=== PATIENT | female | born 1990 | race Caucasian/White ===

== ENCOUNTER 2016-11-04 15:30 | Emergency (ER) | payer OTHER ==
[2015-10-10 17:59] VITALS: BMI 34.2
--- NOTE | 2016-11-13 12:09 | OBHP ---
Datetime: 11/04/2016 18:31 IP Adm Impression: , intrauterine ; No Active Labor IP Chief Complaint Other: back pain IP Admit Plan: Discharge home Admit Comment, IP Provider: chief complaint- low back pain HPI 26 y/o at 27 wga by stated CLARIBEL, with c/o feeling lower abdominal back pain since yesterda y.pain is more when she walks but improves with rest.patient wears flip flopd mainly.patient denies a ny abdominal pain, vaginal bleeding or loss of fluid.Patient denies nausea, vomiting, headache, chest pain, shortness of breath course uncomplicated PMH denies PSH csectionx2 Social hx denies tobacco,alcohol or illcit drug use Exam see exam section cervic closed no cva tenderness A/P 26 y/o at 27 wga with c/o lower back discomfort. -patient not in kabor -suspect musculoksletal pain .advised to use tylenol.Wear supportive shoes -follow up in [facility] tomorrow Pelvic Type - PN: Adequate Extremities - PN: Normal Abdomen - PN: Normal Back - PN: Normal Lungs - PN: Normal Heart - PN: Normal Neurologic - PN: Normal General - PN: Normal FHR - Baseline A Provider: 150 Contraction Comments Provider: none Gestation - Est Wks by US: 27.0 IP Hx Assessment: The History has been Reviewed and is Current EGA AdmitDate IP: 27.0 Vital Signs Provider: Reviewed; Within Normal Limits IP Chief Complaint: Other NICHD Variability Prov Fetus A: Moderate 6-25bpm NICHD Accel Fetus A IP Provider: 10X10 NICHD Decel Fetus A IP Provider: None Dilatation, Provider: 0 Genitourinary Exam: Normal DTRs - PN: Normal
== END 2016-11-04 18:05 | disposition home or self-care (01) ==
LOC: C.EROB 15:30
DX: O26.892 Other specified pregnancy related conditions, second trimester (principal); M54.5 Low back pain; Z3A.27 27 weeks gestation of pregnancy

== ENCOUNTER 2017-01-08 16:48 | Observation (INO) | payer OTHER ==
[2015-10-10 17:59] VITALS: BMI 34.2
[2017-01-08] MEDS ORDERED: Lactated Ringer's 1,000 ML IV ONE (17:59)
[2017-01-08 18:46] LABS: RBC URINE 6 /hpf (0-3); URINE BACTERIA FEW (<OCC); URINE BILIRUBIN NEGATIVE (NEGATIVE); URINE BLOOD 1+ (NEGATIVE); URINE COLOR Yellow (YELLOW); URINE GLUCOSE (UA) NORMAL (Normal); URINE KETONE NEGATIVE (NEGATIVE); URINE LEUKOCYTE ESTERASE 3+ Leu/uL (Negative); URINE PROTEIN NEGATIVE (NEGATIVE); URINE UROBILINOGEN NORMAL mg/dL (0.2-1.0); WBC URINE 19 /hpf (0-5)
[2017-01-08 19:11] LABS: BASO % 0.3 % (0.0-2.0); EOS % 0.4 % (0.0-4.0); HEMATOCRIT 30.9 % (34.0-47.0); LYMPH # 2.1 K/uL (1.0-4.3); LYMPH % 22.4 % (20.0-40.0); MEAN CELL VOLUME 90.4 fL (81.0-99.0); MEAN CORPUSCULAR HEMOGLOBIN 31.4 pg (27.0-31.0); MEAN CORPUSCULAR HGB CONC 34.7 g/dL (33.0-37.0); MEAN PLATELET VOLUME 8.6 fL (7.2-11.7); MONO # 0.7 K/uL (0.0-0.8); RED CELL DISTRIBUTION WIDTH 12.8 % (11.5-14.5); WHITE BLOOD COUNT 9.3 K/uL (4.8-10.8)
[2017-01-08 19:23] LABS: CHLORIDE 106 mmol/L (98-107); POTASSIUM 3.7 mmol/L (3.6-5.2); SODIUM 138 mmol/L (132-148)
[2017-01-08 19:25] LABS: BILIRUBIN,TOTAL 0.6 mg/dL (0.2-1.3); CARBON DIOXIDE 22 mmol/L (22-30); GFR AFRICAN-AMERICAN > 60
[2017-01-08 19:26] LABS: ALB/GLOB RATIO 0.9 (1.0-2.1); ALKALINE PHOSPHATASE 85 U/L (38-126); ALT/SGPT 22 U/L (9-52); AST/SGOT 24 U/L (14-36); BLOOD UREA NITROGEN 6 mg/dL (7-17); CALCIUM 9.4 mg/dl (8.6-10.4); GLUCOSE,RANDOM 95 mg/dL (65-105); TOTAL PROTEIN 7.2 g/dL (6.3-8.3)
[2017-01-08] MEDS ORDERED: cefTRIAXone IV 1 gm in Dextros 50 ML IVPB ONE ×2 (21:00→21:28)
[2017-01-09 10:45] LABS: BASO % 0.3 % (0.0-2.0); EOS % 0.5 % (0.0-4.0); HEMATOCRIT 28.4 % (34.0-47.0); LYMPH # 1.6 K/uL (1.0-4.3); LYMPH % 21.5 % (20.0-40.0); MEAN CELL VOLUME 90.3 fL (81.0-99.0); MEAN CORPUSCULAR HEMOGLOBIN 31.7 pg (27.0-31.0); MEAN CORPUSCULAR HGB CONC 35.1 g/dL (33.0-37.0); MEAN PLATELET VOLUME 8.3 fL (7.2-11.7); MONO # 0.6 K/uL (0.0-0.8); MONO % 7.2 % (0.0-10.0); RED CELL DISTRIBUTION WIDTH 12.8 % (11.5-14.5); WHITE BLOOD COUNT 7.7 K/uL (4.8-10.8)
[2017-01-09] MEDS ORDERED: Magnesium Sulfate 1 gm in D5W 1 GM/100 ML BAG IVPB ONE ×2 (11:30→12:00)
[2017-01-09 11:39] LABS: ALB/GLOB RATIO 0.9 (1.0-2.1); ALKALINE PHOSPHATASE 79 U/L (38-126); ALT/SGPT 19 U/L (9-52); AST/SGOT 20 U/L (14-36); BILIRUBIN,TOTAL 0.6 mg/dL (0.2-1.3); BLOOD UREA NITROGEN 5 mg/dL (7-17); CALCIUM 9.3 mg/dl (8.6-10.4); CARBON DIOXIDE 23 mmol/L (22-30); CHLORIDE 103 mmol/L (98-107); GFR AFRICAN-AMERICAN > 60; GLUCOSE,RANDOM 95 mg/dL (65-105); POTASSIUM 3.9 mmol/L (3.6-5.2); SODIUM 138 mmol/L (132-148); TOTAL PROTEIN 6.7 g/dL (6.3-8.3); URIC ACID 5.7 mg/dL (2.2-7.5)
--- NOTE | 2017-01-09 17:14 | CP.PCM.CON ---
History of Present Illness - History of Present Illness History of Present Illness: Ms. Florence Arnold is a 26-year-old woman who is currently (34 weeks) , who states that for the past two days she has had a left sided, throbbing headache that does not seem to be associated with photophobia, phonophobia, but has caused nausea and vomiting yesterday. She rates it a 6/10 in severity right now, but it has improved from before. It came on gradually and seems to be focused in the moravian region. She denies any weakness or sensory changes. Her labs showed a UTI and elevated fibrinogen levels. Review of Systems - Review of Systems All systems: reviewed and no additional remarkable complaints except Past Patient History - Past Social History Smoking Status: Never Smoked - CARDIAC Hx Hypertension: Yes - PSYCHIATRIC Hx Substance Use: No - SURGICAL HISTORY Hx Surgeries: Yes Hx Section: Yes (X2) Meds Allergies/Adverse Reactions: Allergies Allergy/AdvReac Type Severity Reaction Status Date / Time No Known Allergies Allergy Verified 10/10/15 18:29 - Medications Medications: Current Medications Ceftriaxone Sodium 1 gm/ (Sodium Chloride) 100 mls @ 100 mls/hr IVPB DAILY MARY KATE Ondansetron HCl (Zofran Inj) 4 mg IVP DAILY@ONCE PRN PRN Reason: Nausea/Vomiting Last Admin: 01/08/17 20:10 Dose: 4 mg Physical Exam - Constitutional Appears: Well - Head Exam Head Exam: ATRAUMATIC, NORMAL INSPECTION, NORMOCEPHALIC - Eye Exam Eye Exam: EOMI, Normal appearance, PERRL - ENT Exam ENT Exam: Mucous Membranes Moist, Normal Exam - Neck Exam Neck exam: Positive for: Normal Inspection - Cardiovascular Exam Cardiovascular Exam: REGULAR RHYTHM, +S1, +S2 - GI/Abdominal Exam GI & Abdominal Exam: Normal Bowel Sounds, Soft. absent: Tenderness - Rectal Exam Rectal Exam: Deferred - Extremities Exam Extremities exam: Positive for: normal inspection - Back Exam Back exam: NORMAL INSPECTION - Neurological Exam Neurological exam: Alert, CN II-XII Intact, Normal Gait, Oriented x3, Reflexes Normal - Psychiatric Exam Psychiatric exam: Normal Affect, Normal Mood - Skin Skin Exam: Dry, Intact, Normal Color, Warm Results - Labs Result Diagrams: 01/09/17 10:40 01/09/17 10:40 Labs: Laboratory Results - last 24 hr 01/09/17 01/09/1717 10:40 10:40 10:40 WBC 7.7 RBC 3.14 L Hgb 10.0 L Hct 28.4 L MCV 90.3 MCH 31.7 H MCHC 35.1 RDW 12.8 Plt Count 228 MPV 8.3 Neut % (Auto) 70.5 Lymph % (Auto) 21.5 [place] % (Auto) 7.2 Eos % (Auto) 0.5 Baso % (Auto) 0.3 Neut # 5.4 Lymph # 1.6 [place] # 0.6 Eos # 0.0 Baso # 0.0 PT 11.4 INR 1.0 APTT 26 Fibrinogen 673 H Sodium 138 Potassium 3.9 Chloride 103 Carbon Dioxide 23 Anion Gap 16 BUN 5 L Creatinine 0.4 L Est GFR ( Amer) > 60 Est GFR (Non-Af Amer) > 60 Random Glucose 95 Uric Acid 5.7 Calcium 9.3 Total Bilirubin 0.6 AST 20 ALT 19 Alkaline Phosphatase 79 Total Protein 6.7 Albumin 3.2 L Globulin 3.5 Albumin/Globulin Ratio 0.9 L Assessment & Plan (1) Headache Assessment and Plan: The onset of the headache, and elevated inflammatory/fibrinogen levels is concerning for a CVT. We should rule this out with an MRI of the brain and MRV of the brain without contrast. In the mean time, we can treat the headache with magnesium sulfate 2 grams IV, Tylenol and ibuprofen as needed. Thank you. Status: Acute Priority: High
[2017-01-10 09:17] VITALS: RESP 18; TEMP 98.2; O2SAT 99
--- NOTE | 2017-01-10 16:25 | CP.PCM.PN ---
Subjective - Date & Time of Evaluation Date of Evaluation: 01/10/17 Time of Evaluation: 16:23 - Subjective Subjective: Ms. Florence Arnold was seen and examined today at bedside. She was unable to tolerate the MRI; however, today she said that her headache is completely gone. She was having lunch and did not have any nausea. Objective - Vital Signs/Intake and Output Vital Signs (last 24 hours): Temp Pulse Resp BP Pulse Ox 98.2 F 106 H 18 124/60 99 01/10/17 09:15 01/10/17 09:15 01/10/17 09:15 01/10/17 09:01/10/17 09:15 - Medications Medications: Current Medications Ceftriaxone Sodium 1 gm/ (Sodium Chloride) 100 mls @ 100 mls/hr IVPB DAILY MARY KATE Last Admin: 01/10/17 09:23 Dose: 100 mls/hr Ondansetron HCl (Zofran Inj) 4 mg IVP DAILY@ONCE PRN PRN Reason: Nausea/Vomiting Last Admin: 01/08/17 20:10 Dose: 4 mg - Labs Labs: 01/09/17 10:40 01/09/17 10:40 PT 11.4 SECONDS (9.7-12.2) 01/09/17 10:40 INR 1.0 01/09/17 10:40 APTT 26 SECONDS (21-34) 01/09/17 10:40 - Neurological Exam Neurological Exam: Awake, CN II-XII Intact, Normal Gait, Oriented x3, Reflexes Normal Neuro motor strength exam: Left Upper Extremity: 5, Right Upper Extremity: 5, Left Lower Extremity: 5, Right Lower Extremity: 5 Assessment and Plan (1) Headache Assessment & Plan: May discharge home on magnesium oxide 400 mg BID. No further recommendations at this time. Status: Resolved
[2017-01-10 20:54] VITALS: BP 129/69; PULSE 104
== END 2017-01-10 16:52 | disposition home or self-care (01) ==
LOC: C.EROB 16:48 → C.4D 23:52 → C.4M 01-09 22:30
PROVIDERS: ADMIT Obstetrics & Gynecology; ATTEND Obstetrics & Gynecology
DX: O23.43 Unspecified infection of urinary tract in pregnancy, third trimester (principal); Z3A.34 34 weeks gestation of pregnancy; O16.3 Unspecified maternal hypertension, third trimester
CPT/HCPCS: 80053; 81001; 84550; 85025; 85384; 85610; 85730; 87086; 96361; 96365; 96366; 96367; 96375; 99284; G0378; J0696; J2405; J3475; J7120

== ENCOUNTER 2017-01-30 17:28 | Emergency (ER) | payer OTHER ==
[2017-01-29 09:38] VITALS: BMI 34.2
[2017-01-30] MEDS ORDERED: Lactated Ringer's 1,000 ML IV ONE (18:23)
[2017-01-30] MEDS ORDERED: Dextrose 5%/Lactated Ringer's 1,000 ML IV SCH (19:15)
[2017-01-30 19:51] LABS: RBC URINE 40 /hpf (0-3); URINE BACTERIA OCC (<OCC); URINE BILIRUBIN NEGATIVE (NEGATIVE); URINE BLOOD 2+ (NEGATIVE); URINE COLOR Yellow (YELLOW); URINE GLUCOSE (UA) NORMAL (Normal); URINE KETONE NEGATIVE (NEGATIVE); URINE LEUKOCYTE ESTERASE 1+ Leu/uL (Negative); URINE PROTEIN 1+ mg/dL (NEGATIVE); URINE UROBILINOGEN NORMAL mg/dL (0.2-1.0); WBC URINE 9 /hpf (0-5)
--- NOTE | 2017-01-30 20:55 | OBHP ---
Datetime: 01/10/2017 10:48 IP Adm Impression: Term, intrauterine IP Chief Complaint Other: Pelvic pressure, pelvic pain IP Adm Impression Other: Previous C/S x 2 IP Admit Plan: Discharge home Admit Comment, IP Provider: This is a private patient of Dr. Rj Sanders [employer] Environmental [employer] Engineer service used; [place] [id number] Patient is a 26 y.o. , LMP 05/13/16, CLARIBEL 02/17/17, EGA 37w 3d, c/o contractions/pelvic pres sure onset 1726 hours; pain scale 6/10 to 7/10. (+) AFM; denies LOF, VB. care: Dr. Dominick jackson; denies any issues. Last visit 01/27/17; next visit 02/03. Patietn transfereed to Dr. Sanders 11/13 16; previous care with records are available - all is current P Ob: C/S x 2: 05/2007, female, 7 3/4lb. Elective primary, [place]. No complications. 07/27/19 14, female, 8lb; no GDM or complications; [facility]. 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 Denies STIs PMH: denies PSH: C/S x 2 NKDA Meds: PNV - QD. Calcium - TID Soc Hx: denies tobacco, illicit drug or EtOH use. 1 yr 2 months; with FOB x 3 years. Lives with him and her daughters. Unemployed. Fam Hx: Mother alive 62 y.o. - HTN, cardiac disease. Father - "accident"; when patient 3 y.o. No known fam h/o cancer P.E.: as above. Obese, in NAD; appears uncomfortable. Awake, alert, oriented to time, person and place. Pleasant and cooperative. Accompanied by and sister. Assessment: 26 y.o. P2, 37w 3d, previous C/S x 2, premature contractions. Category 1 tracing. Cli nically stable. Plan: 1) IVFs 2) U/A 3) Observe - as per Dr. Sanders Addenedum: 2044 hours S/P 2 litre IVFs - reports no lower abdominal pain or pelvic pressure U/A: S.G. 1.016; leuk esterase 1+; all else negative Brooks: very occasional/infrequent contractions Asessment: 26 yo P2. previous C/S x 2; dehydration. Uterine contraciotns resolved with IVFs. Patie nt counseled to drink half her weight in ounces of water, i.e. 120 oz = 1 gallon. Patient expressed a n understanding and agees to attempt to doso. Also explained - early signs of UTI; will treat. Catego ry 1 tracing. Patient is clinically stable. Plan: 1) Discharge home 2) Reviewed S/S labor 3) Rx: Keflex 500 mg 1 tab by mouth TID x 5 days 4) Rx: Diflucan 150 mg 1 tab by mouth , as needed 5) Keep appointment, 02/03/17 - discussed with Dr. Sanders Pelvic Type - PN: Adequate Extremities - PN: Normal Abdomen - PN: Normal Back - PN: Normal Breast - PN: Not Done Lungs - PN: Normal Heart - PN: Normal Thyroid - PN: Not Done Neurologic - PN: Normal HEENT - PN: Normal General - PN: Normal Presentation-Admit: Vertex FHR - Baseline A Provider: 145 Contraction Comments Provider: 2-6 minutes Comments, ACOG Physical Exam: Abdomen: Obese, Gravid. (+) suprapubic tenderness. Healed keloid scar in prevous Pfannenstiel scar. Fundal height 40 cm All other systems reviewed and are negative Gestation - Est Wks by US: 37w 3d IP Hx Assessment: The History has been Reviewed and is Current EGA AdmitDate IP: 34.4 Vital Signs Provider: Reviewed IP Chief Complaint: Maternal discomfort; Other NICHD Variability Prov Fetus A: Moderate 6-25bpm NICHD Accel Fetus A IP Provider: 15X15 FHR Category Provider Fetus A: Category I NICHD Decel Fetus A IP Provider: None Dilatation, Provider: 1 Effacement, Provider: 30 Station, Provider: high Genitourinary Exam: Normal DTRs - PN: Not Done
[2017-01-31 03:20] VITALS: BP 125/80; PULSE 101; RESP 20; TEMP 98
--- NOTE | 2017-02-02 15:00 | OBHP ---
Datetime: 01/10/2017 10:48 EGA AdmitDate IP: 34.4 Datetime: 01/08/2017 17:45 Admit Comment, IP Provider: Patient is a 26 year old at 34w2d CLARIBEL 02/17/17 by LMP 05/13/16 pr esents to L and D for headaches for 2 days. Reports that headache is intermittent and bandlike in erick ure. Rates headache 8/10 currently. Took tylenol at home with no relief. Had once episode of nausea a nd vomiting yesterday. Had breakfast this morning and tolerated it. Endorses +FM, and states that she is having abdominal pressure. Denies VB or LOF. Denies visual changes, RUQ/epigastric pain, SOB, uri nary symptoms, nausea/vomiting. Issues: denies OB Hx: 1. 2007 PLTCD (unknown reason) in [facility], no complications 2. 2013 RLTCD, no complications 3. 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 Stable, afebrile 2. CEFM and TOCO 3. UA sent 4. LR for IV hydration 5. CBC/CMP ordered 6. Tylenol 650mg PO x 1 dose 7. Plan dw attending Halina Mcelroy DO PGY-1 OB Addendum: CBC and CMP reviewed. UA showing +leuk esterease and bacteria. Patient had one episod e of vomiting, Zofran ordered. Rocephin 1 gm given. Patient recieving fluids, still milo. Will admit for observation 1. Rocephin 1gm Q12H 2. F/U urine cx 3. Tylenol 650mg x 1 dose 4. CEFM and TOCO 5. Continue to observe 6. Plan d/w attending. This Pt was seen and examined with Resident and I agree with the above evaluation.
== END 2017-01-30 20:36 | disposition home or self-care (01) ==
LOC: C.EROB 17:28
DX: O47.1 False labor at or after 37 completed weeks of gestation (principal); Z3A.37 37 weeks gestation of pregnancy
CPT/HCPCS: 81001; 99283; J7120

== ENCOUNTER 2017-02-02 15:10 | Inpatient (IN) | payer OTHER ==
[2017-01-29 09:38] VITALS: BMI 34.2
[2017-02-02] MEDS ORDERED: Lactated Ringer's 1,000 ML IV ONE (15:30)
[2017-02-02] MEDS ORDERED: Sodium Chloride 0.9% 1,000 ML IV SCH (16:00)
[2017-02-02] MEDS ORDERED: Sodium Citrate/Citric Acid 15 ml Sol PO ONE (16:05)
[2017-02-02] MEDS ORDERED: cefOXitin IV 2 gm in Dextrose 2 GM/50 ML BAG IVPB SCH (16:15)
[2017-02-02] MEDS ORDERED: Lactated Ringer's 1,000 ML IV SCH (16:30)
[2017-02-02] MEDS ORDERED: Sodium Citrate/Citric Acid 15 ml Sol ONE (16:59)
[2017-02-02] MEDS ORDERED: cefOXitin IV 2 gm in Dextrose 2 GM/50 ML BAG IVPB ONE (16:59)
--- NOTE | 2017-02-02 17:04 | OBADHP ---
Datetime: 02/02/2017 16:22 IP Adm Impression Other: Previous C/S x 2 Admit Comment, IP Provider: This is a private patient of Dr. Rj Sanders Patient is a 26 y.o. , LMP 05/13/16, CLARIBEL 02/17/17, EGA 37w 6d c/o rupture of membranes at 1 430 hours; clear fluid. (+) AFM; denies VB (+) AFM. care: Dr. Sanders; denies issues to d ate. P Ob: C/S x 2: 05/2007, female, 7 3/4lb. Elective primary, [place]. No complications. 07/27/19 14, female, 8lb; no GDM or complications; [facility]. P [employer]: 12 x monthly x 4. Denies STIs PMH: denies PSH: C/S x 2 NKDA Meds: PNV - QD. Calcium - TID Soc Hx: denies tobacco, illicit drug or EtOH use. 1 yr 4 months; with FOB x 3 years. Lives with him and her daughters. Unemployed. Fam Hx: Mother alive 62 y.o. - HTN, cardiac disease. Father - "accident"; when patient 3 y.o. No known fam h/o cancer P.E.: as above. Obese, in NAD. Awake, alert, oriented to time, person and place. Pleasant and co operative. Accompanied by and sisters. Assessment: 26 y.o. P2, 37w 6d, previous C/S x 2, PROM, with uterine contractions. Category 1 tr acing. Patient ate meal of rice, eggs, and chili appproximately 1315 hours. Clinically stable. 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 8) Notify peds 9) Notify anesthesia - Dr. Sanders aware Pelvic Type - PN: Adequate Extremities - PN: Abnormal Abdomen - PN: Normal Back - PN: Normal Breast - PN: Not Done Lungs - PN: Normal Heart - PN: Normal Thyroid - PN: Not Done Neurologic - PN: Normal HEENT - PN: Normal General - PN: Normal Weight - Estimated: 3632 Presentation-Admit: Vertex FHR - Baseline A Provider: 150 Membranes, Provider: Ruptured Contraction Comments Provider: 5-6 Comments, ACOG Physical Exam: Abdomen: Obese. Gravid. soft; (+) keloid scar in Pfanninstiel incision . Fundal height 38 cm Speculum exam: (+) pooling; (+) nitrazine All other systems reviewed and are negative Gestation - Est Wks by US: 37w 6d Pool Provider: Positive Nitrazine Provider: Positive IP Hx Assessment: The History has been Reviewed and is Current Vital Signs Provider: Reviewed IP Chief Complaint: Suspected ruptured membranes NICHD Variability Prov Fetus A: Moderate 6-25bpm NICHD Accel Fetus A IP Provider: 15X15 FHR Category Provider Fetus A: Category I NICHD Decel Fetus A IP Provider: None Dilatation, Provider: 1-2 Effacement, Provider: 30 Station, Provider: -3 Genitourinary Exam: Normal DTRs - PN: Not Done EGA AdmitDate IP: 37.6 IP Adm Impression: Term, intrauterine ; No Active Labor; Ruptured Membranes IP Admit Plan: Admit to unit; Initiate Section protocol Datetime: 01/10/2017 10:48 IP Chief Complaint Other: Pelvic pressure, pelvic pain
[2017-02-02] MEDS ORDERED: Oxytocin 20 units in LR 2,000 ML IV ONE (17:14)
[2017-02-02] MEDS ORDERED: Phenylephrine 10 mg/ml Inj ONE (17:15)
[2017-02-02] MEDS ORDERED: ePHEDrine 50 mg/ml Inj ONE (17:15)
[2017-02-02 18:04] LABS: BASO % 0.2 % (0.0-2.0); EOS % 0.4 % (0.0-4.0); HEMATOCRIT 29.6 % (34.0-47.0); LYMPH # 1.6 K/uL (1.0-4.3); LYMPH % 17.7 % (20.0-40.0); MEAN CELL VOLUME 90.3 fL (81.0-99.0); MEAN CORPUSCULAR HEMOGLOBIN 30.7 pg (27.0-31.0); MEAN PLATELET VOLUME 8.9 fL (7.2-11.7); MONO # 0.5 K/uL (0.0-0.8); MONO % 5.1 % (0.0-10.0); RED CELL DISTRIBUTION WIDTH 13.1 % (11.5-14.5); WHITE BLOOD COUNT 9.1 K/uL (4.8-10.8)
[2017-02-02] MEDS ORDERED: Morphine 1 mg/ml preservative-free Inj(Duramorph) ONE (18:15)
[2017-02-02 18:23] LABS: CHLORIDE 101 mmol/L (98-107); SODIUM 131 mmol/L (132-148)
[2017-02-02 18:24] LABS: POTASSIUM 3.6 mmol/L (3.6-5.2)
[2017-02-02 18:26] LABS: ALB/GLOB RATIO 0.9 (1.0-2.1); ALKALINE PHOSPHATASE 105 U/L (38-126); AST/SGOT 19 U/L (14-36); BILIRUBIN,TOTAL 0.7 mg/dL (0.2-1.3); BLOOD UREA NITROGEN 6 mg/dL (7-17); CARBON DIOXIDE 20 mmol/L (22-30); GFR AFRICAN-AMERICAN > 60; TOTAL PROTEIN 7.3 g/dL (6.3-8.3)
[2017-02-02 18:27] LABS: ALT/SGPT 14 U/L (9-52); CALCIUM 8.9 mg/dl (8.6-10.4); GLUCOSE,RANDOM 111 mg/dL (65-105)
[2017-02-02 18:33] LABS: RBC URINE 41 /hpf (0-3); URINE BACTERIA OCC (<OCC); URINE BILIRUBIN NEGATIVE (NEGATIVE); URINE BLOOD 2+ (NEGATIVE); URINE COLOR Amber (YELLOW); URINE GLUCOSE (UA) NORMAL (Normal); URINE KETONE NEGATIVE (NEGATIVE); URINE LEUKOCYTE ESTERASE 2+ Leu/uL (Negative); URINE PROTEIN 2+ mg/dL (NEGATIVE); URINE UROBILINOGEN NORMAL mg/dL (0.2-1.0); WBC URINE 46 /hpf (0-5)
[2017-02-02] MEDS ORDERED: Midazolam 2 MG/2 ML VIAL ONE (19:42)
[2017-02-02] MEDS ORDERED: Oxytocin 10 Units/ml Inj ONE (19:48)
[2017-02-02] MEDS ORDERED: Propofol 10 mg/ml Inj (20 ML) ONE ×2 (20:16→20:37)
--- NOTE | 2017-02-02 20:55 | OBDS ---
DELIVERY PERSONNEL Delivery Doctor: Makayla Sanders MD Scrub Nurse: Elzbieta Mullen Nurse Receptionist: Lisa Oviedo RN MATERNAL INFORMATION Delivery Anesthesia: Spinal Maternal Complications: None Provider Comments: Uncomplicated repeat delivery of a viable female infant with BW of 8Ib 1 oz and scores of 9 and 9. BTL performed on maternal request. LABOR SUMMARY EDC: 02/17/2017 00:00 No. Babies in Womb: 1 Attempted: No Labor Anesthesia: None LABOR INFORMATION Reason for Induction: Not Applicable Oxytocin: N/A Group B Beta Strep: Done, Result Unknown Antibiotics # of Doses: 1 Steroids Given: None Reason Steroids Not Administered: Not Applicable MEMBRANES Membranes Rupture Method: Spontaneous Rupture of Membranes: 02/02/2017 14:00 Length of Rupture (hrs): 5.72 Amniotic Fluid Color: Clear Amniotic Fluid Amount: Moderate Amniotic Fluid Odor: Normal STAGES OF LABOR Stage 3 hrs: 0 Stage 3 min: 1 VAGINAL DELIVERY Episiotomy: None Laceration Extension: N/A Laceration Type: None CSECTION DELIVERY Primary Indication: Repeat Elective Secondary Indication: N/A CSection Urgency: Emergency CSection Incidence: Repeat Labor: Labor Elective: Elective CSection Incision: Lower Uterine Transverse Uterine Closure: Double-layer closure BABY A INFORMATION Infant Delivery Date/Time: 02/02/2017 19:43 Method of Delivery: Born in Route : No : N/A Forceps: N/A Vacuum Extraction: N/A Shoulder Dystocia : No SHOULDER DYSTOCIA BABY A Delivery Date/Time: 02/02/2017 19:43 PRESENTATION/POSITION BABY A Presentation: Cephalic Cephalic Presentation: Vertex Breech Presentation: N/A PLACENTA INFORMATION BABY A Placenta Delivery Time : 02/02/2017 19:44 Placenta Method of Delivery: Manual Removal Placenta Status: Delivered SCORES BABY A Heart Rate 1 min: >100 bpm Resp Effort 1 min: Good Cry Reflex Irritability 1 min: Cough or Sneeze or Pulls Away Muscle Tone 1 min: Active Motion Color 1 min: Body [place], Extremities Blue SCORE 1 MIN: 9 Heart Rate 5 min: >100 bpm Resp Effort 5 min: Good Cry Reflex Irritability 5 min: Cough or Sneeze or Pulls Away Muscle Tone 5 min: Active Motion Color 5 min: Body [place], Extremities Blue SCORE 5 MIN: 9 INFANT INFORMATION BABY A Gestational Age at Delivery: 37.6 Gestational Status: Term Infant Outcome : Liveborn Infant Condition : Stable Infant Sex: Female IDENTIFICATION/MEDS BABY A ID Band Number: [id number] ID Band Location: Left Leg; Left Arm Sensor Applied: Yes Sensor Number: [id number] WEIGHT/LENGTH BABY A Infant Birthweight (gms): 3670 Infant Weight (lb): 8 Infant Weight (oz): 1 Length Inches: 19.00 Length cms: 48.3 CORD INFORMATION BABY A No. Cord Vessels: 3 Nuchal Cord : Around Neck x1, Loose Cord Blood Taken: Yes Infant Suction: None ASSESSMENT BABY A Complications: None Physical Findings at Delivery: Within Normal Limits Infant Respirations: Appears Normal Administrative Secretary/ALS Called : No Care By: NOEMI WYMAN Transferred To: Remains with Mother
--- NOTE | 2017-02-02 21:02 | PCM.SURG1 ---
Surgeon's Initial Post Op Note - Surgeon's Notes Surgeon: Dr Sanders Well Puller: Dr Amaya Type of Anesthesia: Spinal Anesthesia Administered By: Dr Olivo Pre-Operative Diagnosis: 1. IUP at 39wks ,Previous X2 with Spontaneous rupture of Membranes. 2. Multiparity requesting for permanent surgical sterilization. Operative Findings: Live female infant with BW of 8Ibs 1 oz, scores of 9 and 9. delivered in cephalic presentation, fundal placenta, clear amniotic fluid.Nuchal cord X1. Uterus, both ovaries and fallopian tubes appeared normal. IVFluid intake- 2000mls. EBL- 500mls. Urine output- 600mls Post-Operative Diagnosis: Same as preop Diagnosis Operation Performed: Repeat Low Transverse Section with Bilateral Tubal ligation via the pomeroys procedure. Specimen/Specimens Removed: none Estimated Blood Loss: EBL {In ML}: 500 Post-Op Condition: Good Date of Surgery/Procedure: 02/02/17 Time of Surgery/Procedure: 21:05
--- NOTE | 2017-02-02 22:59 | OP ---
PROCEDURE DATE: 02/02/2017 PREOPERATIVE DIAGNOSES: 1. Intrauterine at 39 weeks with two previous section coming with spontaneous rupture of membranes. 2. Multiparity, requesting for permanent surgical stabilization. PROCEDURES DONE: A repeat low-transverse section and bilateral tubal ligation via the [place] method. SURGEON: Rj Sanders MD TRACK SUPERVISOR: Joseph Amaya MD Assistance to this procedure was needed for exposure of tissues and to help in the conduct and delivery of the baby. The case management assistant remained with the surgery throughout its entire length. TYPE OF ANESTHESIA: Spinal. ANESTHESIA ADMINISTERED BY: Dr. Olivo. OPERATIVE FINDINGS: A live female infant with weight of 8 pounds 1 ounces. scores of 9 in the first and fifth minutes respectively. Baby delivered in cephalic presentation with nuchal cord x1 loosely around the neck. Placenta was fundal with clear amniotic fluid. The uterus as well as bilateral ovaries and fallopian tubes appear normal. IV FLUID INTAKE: 2000 mL. ESTIMATED BLOOD LOSS: 500 mL. URINE OUTPUT: About 600 mL. COMPLICATIONS: There were no complications. SPECIMEN: None sent for pathology. DESCRIPTION OF PROCEDURE: After obtaining the informed consent, the patient was sent to the OR with IV running and Charles catheter in place. The patient was flat on the OR table and after adequate spinal anesthesia was put in a supine position with a left lateral tilt. The patient was then prepped and draped in the usual sterile fashion. Using a scalpel, the old Pfannenstiel incisional scar with keloid was excised then this was continued with a Bovie device through the subcutaneous tissues until the rectus fascia was identified. A transverse incision was made in the rectus fascia and was carried to both sides by means of sharp dissection with Slade scissors. The rectus fascia was then lifted off the rectus muscles both superiorly inferiorly by means of blunt dissection and sharp dissection. The rectus muscle was in the midline to expose the peritoneum, which was carefully entered and with good visualization of bladder. Once the abdominal cavity was entered, the above findings were noted. The vesicouterine fold of peritoneum was identified, incised in a transverse fashion using Metzenbaum scissors and retracted inferiorly to expose the lower uterine segment. A low transverse incision was made using the scalpel. This incision was carried through the myometrial layer, so the amniotic membranes were identified. The incision was extended to both sides by means of blunt dissection. The amniotic membranes were ruptured with a pickup forceps and the baby which was positioned in the cephalic presentation was delivered. There was a loose cord around the neck x1, which was reduced after delivery. The three-vessel cord was clamped and cut and the baby was given to the nurse after bulb suctioning the mouth and nostril. Umbilical cord blood was obtained for analysis and the placenta was removed from the uterine cavity. The uterus was then brought out of the abdominal cavity and then the cavity cleaned off all debris using dry laparotomy pads. The uterine incision was then closed in two layers using Vicryl #0, the first layer in a running locked fashion and a second layer in a running fashion, imbricating the first layer. Once this has been completed, attention was turned to the right fallopian tube, which was lifted with a [place] forceps and #0 plain catgut used to do the tubal ligation, after forming a loop of about 4 cm with the [place]. This base of this loop was doubly ligated with #2-0 plain catgut and the loop above the area of ligation was excised for pathological evaluation. The same procedure was performed on the left fallopian tube. Once the procedure has been completed, hemostasis was noted. Pelvis was irrigated with warm saline. After this, the uterus was retained into the abdominal cavity. The fallopian tubes were reinspected and once hemostasis was noted, attention was turned over to the anterior abdominal wall, which was closed in layers with 2-0 Vicryl for the peritoneum and rectus muscles. The rectus fascia was brought together using Vicryl #0. The subcutaneous tissues was re-approximated using #2-0 plain catgut. The skin was closed in a subcuticular fashion using #4-0 Vicryl. All counts of instruments, laparotomy pads, and needles used were correct x3, and the patient was sent to the recovery room awake and in stable condition. Rj Sanders MD ELADIO
[2017-02-03] MEDS: cefOXitin IV 2 gm in Dextrose 2 GM/50 ML BAG IVPB SCH ×3 (03:20→19:22)
[2017-02-03 07:28] LABS: BASO % 0.2 % (0.0-2.0); EOS % 0.3 % (0.0-4.0); HEMATOCRIT 25.6 % (34.0-47.0); LYMPH # 1.6 K/uL (1.0-4.3); LYMPH % 18.9 % (20.0-40.0); MEAN CELL VOLUME 89.5 fL (81.0-99.0); MEAN CORPUSCULAR HEMOGLOBIN 31.5 pg (27.0-31.0); MEAN CORPUSCULAR HGB CONC 35.2 g/dL (33.0-37.0); MEAN PLATELET VOLUME 8.4 fL (7.2-11.7); MONO # 0.5 K/uL (0.0-0.8); MONO % 5.8 % (0.0-10.0); RED CELL DISTRIBUTION WIDTH 13.1 % (11.5-14.5); WHITE BLOOD COUNT 8.5 K/uL (4.8-10.8)
[2017-02-03] MEDS: Simethicone 80 mg Chewtab PO SCH ×4 (09:27→21:11)
[2017-02-03] MEDS: Oxycodone/Acetaminophen 5/325 mg Tab PO PRN ×4 (09:27→23:26)
[2017-02-03] MEDS ORDERED: Influenza Virus Vaccine 45 mcg/0.5 ml Syr (36 months - 7 yrs) IM ONE (10:00)
[2017-02-04] MEDS: Oxycodone/Acetaminophen 5/325 mg Tab PO PRN ×4 (07:41→22:14)
[2017-02-04] MEDS: Simethicone 80 mg Chewtab PO SCH ×4 (10:39→22:18)
[2017-02-05] MEDS: Oxycodone/Acetaminophen 5/325 mg Tab PO PRN ×2 (04:10→09:39)
[2017-02-05] MEDS: Simethicone 80 mg Chewtab PO SCH (09:39)
[2017-02-05] MEDS ORDERED: Influenza Vaccine 60 mcg/0.5 mL SYR (4YR UP) IM ONE (10:00)
--- NOTE | 2017-02-05 10:53 | OBPPN ---
Datetime: 02/04/2017 07:38 PP BM Prov: No PP C/S Incision Prov: Normal PP Progress Prov: Normal PP Impression Prov: Normal progression PP Plan Prov: Continue present management PP Progress Note Prov: Patient was seen and examined at bedside in the AM. Patient states she is do ing well. She currently does have pain because she states she has not had pain medication since last night. She states she is passing flatus but she has not had a bowel movement. Patient denies nause a or vomiting. She states she is breast feeding but she is having a difficult time and would like to also bottle feed. Objective: H/H 10.05/25.6 Awake, alert, oriented x3 Adbomen: Soft, fundus is firm, lower extremities are nontender, non swollen. A/P 26 yo s/p po day 2 1.) Continue pain management 2.) Advance diet to regular 3.) Encourage ambulation 4.) Encourage breast feeding Qing Tafoya DO PGY-1. Pt seen and discussed with tghe resident and agrees with the above. Vital Signs Provider PP: Reviewed; Within Normal Limits Datetime: 02/03/2017 10:52 PP Pain Prov: Within normal limits PP Nausea Prov: Denies PP Flatus Prov: Yes PP Breasts Prov: Normal PP Heart Prov: Normal PP Lungs Prov: Normal PP Abdomen/Uterus Prov: Normal PP Lochia Prov: Normal PP Vulva/Perineum Prov: Normal PP CVA Tenderness Prov: Normal PP Extremities Prov: Normal
--- NOTE | 2017-02-05 10:58 | OBPPN ---
Datetime: 02/05/2017 10:57 PP Pain Prov: Within normal limits PP Nausea Prov: Denies PP Flatus Prov: Yes PP Breasts Prov: Normal PP Heart Prov: Normal PP Lungs Prov: Normal PP Abdomen/Uterus Prov: Normal PP Lochia Prov: Normal PP Vulva/Perineum Prov: Normal PP CVA Tenderness Prov: Normal PP Extremities Prov: Normal PP Comments Phys Exam Prov: Abd: Soft,NT, BS- present UT- Firm Incision: Clean and dry PP Impression Prov: Normal progression Vital Signs Provider PP: Reviewed Datetime: 02/03/2017 10:52 PP Plan Prov: Continue present management PP Progress Note Prov: S/P Repeat Section, POD #1 CLinically Stable. Plan: Continue Care.
--- NOTE | 2017-02-05 11:00 | OBDCSUM ---
Datetime: 02/05/2017 10:48 Discharged to, Provider: Home Follow up at, Provider: Dr. Sanders Disch Instr Activity: Normal activity Disch Instr Diet: Regular Discharge Instructions, Provider: Routine instructions given Discharge Diagnosis, Provider: Term Delivered Discharge Time: 02/05/2017 10:59 Follow up in weeks, Provider: 2 weeks Disch Referrals: None Contraception discussed, Prov: Yes Disch Activity Restrictions: No exercising; No lifting; No driving; Minimize walking; Minimize stair -climbing; No sexual activity; Nothing in vagina - [place], tampons, douche Discharge Comment, Provider: S/P REpeat Section, Clinically Stable Discharge Diagnosis Prov Other: S/P REpeat Section, Clinically Stable
--- NOTE | 2017-02-05 11:00 | OBPPN ---
Datetime: 02/05/2017 10:57 PP Progress Note Prov: S/P Repeat section and BTL, POD #3 CLinically Stable. Plan: D/C Home. F/U with Dr Sanders in 2 weeks.
[2017-02-05 22:29] VITALS: BP 114/73; PULSE 97; RESP 20; TEMP 98.1; O2SAT 96
== END 2017-02-05 16:35 | disposition home or self-care (01) | DRG 371 ==
LOC: C.EROB 15:10 → C.4D 15:57 → C.4M 23:45
PROVIDERS: ADMIT Obstetrics & Gynecology; ATTEND Obstetrics & Gynecology
PROC: 10D00Z1 Extraction of Products of Conception, Low, Open Approach (ICD-10-PCS; principal; 2017-02-02)
PROC: 0UL70ZZ Occlusion of Bilateral Fallopian Tubes, Open Approach (ICD-10-PCS; 2017-02-02)
DX: O34.211 Maternal care for low transverse scar from previous cesarean delivery (principal); E66.9 Obesity, unspecified; N85.8 Other specified noninflammatory disorders of uterus; O69.81X0 Labor and delivery complicated by cord around neck, without compression, not applicable or unspecified; O42.02 Full-term premature rupture of membranes, onset of labor within 24 hours of rupture; O99.214 Obesity complicating childbirth; Z3A.37 37 weeks gestation of pregnancy; Z37.0 Single live birth; Z30.2 Encounter for sterilization; Z68.34 Body mass index [BMI] 34.0-34.9, adult

== ENCOUNTER 2017-03-07 11:14 | Emergency (ER) | payer OTHER ==
[2017-03-07 11:14] VITALS: BMI 34.2
[2017-03-07 11:25] VITALS: RESP 20
--- NOTE | 2017-03-07 11:39 | C.PDOC ---
Time Seen by Provider: 03/07/17 11:26 Chief Complaint (Nursing): Fever Past Medical History Vital Signs: Last Vital Signs Temp 100.9 F H 03/07/17 11:21 Pulse 110 H 03/07/17 11:21 Resp 20 03/07/17 11:21 BP 128/77 03/07/17 11:21 Pulse Ox 98 03/07/17 11:21 - Medical History PMH: HTN - [facility] Procedures EXTRACTION OF POC, LOW CERVICAL, OPEN APPROACH (02/02/17) LOW CERVICAL (07/25/13) OCCLUSION OF BILATERAL FALLOPIAN TUBES, OPEN APPROACH (02/02/17) - Social History Hx Alcohol Use: No Hx Substance Use: No ED Course And Treatment O2 Sat by Pulse Oximetry: 98 Disposition - Disposition
--- NOTE | 2017-03-07 11:45 | C.PDOC ---
History Of Present Illness 26 yo female, presents with fever, body aches, and [place]. pt states symptoms started 3 days ago. treated with advil at home. no cough, vomiting, abdominal pain, urinary changes, vaginal discharge. noted pt is >4 weeks post op c/s. no leg swelling, blurry vision. Time Seen by Provider: 03/07/17 11:26 Chief Complaint (Nursing): Fever Past Medical History Reviewed: Historical Data, Nursing Documentation, Vital Signs Vital Signs: Last Vital Signs Temp 98.1 F 03/07/17 13:44 Pulse 90 03/07/17 13:44 Resp 20 03/07/17 13:44 BP 115/75 03/07/17 13:44 Pulse Ox 98 03/07/17 13:55 - Medical History PMH: HTN - [facility] Procedures EXTRACTION OF POC, LOW CERVICAL, OPEN APPROACH (02/02/17) LOW CERVICAL (07/25/13) OCCLUSION OF BILATERAL FALLOPIAN TUBES, OPEN APPROACH (02/02/17) Family History: States: Unknown Family Hx - Social History Hx Alcohol Use: No Hx Substance Use: No Review Of Systems Except As Marked, All Systems Reviewed And Found Negative. Constitutional: Positive for: Fever, Malaise Physical Exam - Physical Exam Appears: Well, No Acute Distress Skin: Normal Color, Warm, Dry Eye(s): bilateral: Normal Inspection, PERRL, EOMI Nose: Normal Throat: Normal Neck: Normal Cardiovascular: Rhythm Regular Respiratory: Normal Breath Sounds Gastrointestinal/Abdominal: Normal Exam, Soft, No Tenderness, No Guarding, No Rebound Back: Normal Inspection Extremity: Normal ROM Neurological/Psych: Oriented x3, Normal Speech, Normal Cognition, Normal Cranial Nerves, Normal Motor, Normal Sensation ED Course And Treatment - Laboratory Results Result Diagrams: 03/07/17 12:31 03/07/17 12:36 O2 Sat by Pulse Oximetry: 98 Medical Decision Making Medical Decision Making: r/o uti, inflenza - ua influenza swab pending 100: pt later reports flank pain, with possible uti, small blood in urine. . ct added. ct neg. now reports resolution of symptoms, smiling in nad. abd soft nottp. will dc. Disposition - Disposition Referrals: [facility] [Outside] [facility] [Outside] [facility] [Outside] Disposition: HOME/ ROUTINE Disposition Time: 01:50 Condition: STABLE Additional Instructions: please follow up with your doctor/clinic. return to er with worsening symptoms or concerns. Prescriptions: Cefpodoxime [Vantin] 100 mg PO BID #14 tab Instructions: Urinary Tract Infection in Women (DC), Flank Pain (ED) Forms: Copytele (Lao) Print Language: CHINESE - Clinical Impression Clinical Impression: UTI (urinary tract infection), Fever
[2017-03-07 12:12] LABS: RBC URINE 19 /hpf (0-3); URINE BACTERIA OCC (<OCC); URINE BILIRUBIN NEGATIVE (NEGATIVE); URINE BLOOD 2+ (NEGATIVE); URINE COLOR Yellow (YELLOW); URINE GLUCOSE (UA) NORMAL (Normal); URINE KETONE NEGATIVE (NEGATIVE); URINE LEUKOCYTE ESTERASE 2+ Leu/uL (Negative); URINE PROTEIN 1+ mg/dL (NEGATIVE); URINE UROBILINOGEN NORMAL mg/dL (0.2-1.0); WBC URINE 49 /hpf (0-5)
[2017-03-07] MEDS ORDERED: cefTRIAXone IV 1 gm in Dextros 50 ML IVPB ONE ×2 (12:22→12:33)
[2017-03-07] MEDS ORDERED: Sodium Chloride 0.9% 1,000 ML IV ONE (12:22)
[2017-03-07] MEDS ORDERED: Sodium Chloride 0.9% 1,000 ML ONE (12:31)
[2017-03-07 12:38] LABS: BASO % 0.4 % (0.0-2.0); EOS % 0.3 % (0.0-4.0); HEMATOCRIT 33.3 % (34.0-47.0); LYMPH # 1.2 K/uL (1.0-4.3); LYMPH % 16.9 % (20.0-40.0); MEAN CELL VOLUME 88.2 fL (81.0-99.0); MEAN CORPUSCULAR HEMOGLOBIN 29.9 pg (27.0-31.0); MEAN CORPUSCULAR HGB CONC 33.9 g/dL (33.0-37.0); MEAN PLATELET VOLUME 8.8 fL (7.2-11.7); MONO # 0.4 K/uL (0.0-0.8); MONO % 6.3 % (0.0-10.0); NRBC % 0.1 % (0.0-2.0); RED CELL DISTRIBUTION WIDTH 13.1 % (11.5-14.5)
[2017-03-07 12:45] LABS: INR 1.1
[2017-03-07 12:49] LABS: CHLORIDE 102 mmol/L (98-107); POTASSIUM 3.6 mmol/L (3.6-5.2); SODIUM 135 mmol/L (132-148)
[2017-03-07 12:51] LABS: ALB/GLOB RATIO 0.9 (1.0-2.1); ALKALINE PHOSPHATASE 86 U/L (38-126); AST/SGOT 16 U/L (14-36); BILIRUBIN,TOTAL 1.2 mg/dL (0.2-1.3); BLOOD UREA NITROGEN 10 mg/dL (7-17); CARBON DIOXIDE 21 mmol/L (22-30); GFR AFRICAN-AMERICAN > 60; TOTAL PROTEIN 8.4 g/dL (6.3-8.3)
[2017-03-07 12:52] LABS: ALT/SGPT 34 U/L (9-52); CALCIUM 8.3 mg/dl (8.6-10.4); GLUCOSE,RANDOM 80 mg/dL (65-105)
--- NOTE | 2017-03-07 13:39 | CT ---
PROCEDURE: CT Abdomen and Pelvis without intravenous contrast HISTORY: Abdominal pain COMPARISON: None. TECHNIQUE: CT scan of the abdomen and pelvis was performed without administration of intravenous or oral contrast. Coronal and sagittal reformatted images were obtained. Radiation dose: Total exam DLP = 818.08 mGy-cm. This CT exam was performed using one or more of the following dose reduction techniques: Automated exposure control, adjustment of the mA and/or kV according to patient size, and/or use of iterative reconstruction technique. FINDINGS: LOWER THORAX: The lung bases are clear. LIVER: There is mild hepatomegaly and diffuse fatty infiltration. No gross lesion or ductal dilatation. GALLBLADDER AND BILE DUCTS: There are no calcified gallstones. PANCREAS: Normal in size. No gross lesion or ductal dilatation. SPLEEN: There is borderline splenomegaly. ADRENALS: No discrete nodule. KIDNEYS AND URETERS: There right kidney is normal in size. There is mild fullness in the collecting system and mild diffuse dilatation of the right upper and mid. No obstructing stone identified. The left kidney is normal in size. There is mild dilatation of the proximal ureteral. There are small nonobstructing stones in the left kidney. VASCULATURE: No aortic aneurysm. BOWEL: The small bowel loops are normal in caliber. There is large amount of stool in the colon. No bowel dilatation or obstruction APPENDIX: Normal appendix. PERITONEUM: No free fluid. No free air. LYMPH NODES: There are prominent subcentimeter lymph nodes in the right lower quadrant, likely reactive. BLADDER: The urinary bladder is over distended without intraluminal stone. REPRODUCTIVE: Unremarkable. BONES: No acute fracture. OTHER FINDINGS: None. IMPRESSION: 1. Small nonobstructing stones in the lower pole of the left kidney. No obstructive uropathy. 2. Mild fullness in bilateral renal collecting system and mild dilatation of the ureters is likely related to an over distended urinary bladder. 3. Constipation. No evidence of bowel obstruction. 4. Mild hepatosplenomegaly and fatty liver.
[2017-03-07 13:45] VITALS: BP 115/75; PULSE 90; TEMP 98.1
[2017-03-07 13:56] VITALS: O2SAT 98
== END 2017-03-07 13:52 | disposition home or self-care (01) ==
LOC: C.ER 11:14
DX: N39.0 Urinary tract infection, site not specified (principal); R50.9 Fever, unspecified
CPT/HCPCS: 74176; 80053; 81001; 83690; 84703; 85025; 85610; 85730; 87804; 96361; 96374; 99285; J0696; J7040